=== PATIENT | female | born 1995 | race Caucasian/White ===

== ENCOUNTER 2021-06-11 11:47 | Emergency (ER) | payer SELFPAY ==
[2021-06-11] MEDS ORDERED: Sodium Chloride 0.9% 1,000 ML IV ONE (12:11)
[2021-06-11] MEDS ORDERED: Ondansetron 4 MG/2 ML SDV IVPUSH ONE (12:24)
[2021-06-11] MEDS ORDERED: Meclizine 25 MG Tab PO ONE (12:24)
[2021-06-11 12:34] LABS: BLOOD UREA NITROGEN,BUN 14 mg/dL (7.0-18.0); CARBON DIOXIDE,CO2 26.6 mmol/L (21.0-32.0); CHLORIDE,CL 104 mmol/L (98-107); GLUCOSE RANDOM 91 mg/dL (74-106); LIPASE 48 U/L (73-393); POTASSIUM,K 4.2 mmol/L (3.5-5.1); SODIUM,NA 141 mmol/L (136-145)
--- NOTE | 2021-06-11 13:04 | PCM.EKG ---
#1 Interpretation EKG Date: 06/11/21 Time: 12:59 Rhythm: Other (sinus tami) Rate (Beats/Min): 58 ST-T: Normal
--- NOTE | 2021-06-11 13:06 | EDM.PDOC ---
ED HPI GENERAL MEDICAL PROBLEM - General Chief Complaint: Gastrointestinal Problem Stated Complaint: REFERED FROM DR NORRIS Time Seen by Provider: 06/11/21 11:49 Source of Information: Reports: Patient History Limitations: Reports: No Limitations - History of Present Illness INITIAL COMMENTS - FREE TEXT/NARRATIVE: HISTORY AND PHYSICAL: History of present illness: Patient is a 25-year-old female, with a history of endometriosis and vertigo, who presents emergency room today with concern of nausea, vomiting x2 to 3 days and dizziness x5 days. Patient states that she has had this dizziness before and has been given meclizine for vertigo in the past. Patient states that she does not have it frequently but began having it again the past 5 days. Patient states now the past 2 to 3 days, she has associated vomiting and nausea and feels that she is dehydrated due to this. Patient denies any head injury or loss of consciousness. Patient states that she has not been sexually active for quite some time so does not believe to be . Patient denies any associated abdominal pain. Patient states that she has had chills off and on but has not checked a temperature at home for a possible fever. Patient states that she has had a intermittent nonspecific cough. Patient denies any other associated symptoms. Patient denies fever, chest pain, shortness of breath. Denies headache, neck stiff ness, change in vision, syncope, or near syncope. Denies abdominal pain, diarrhea, constipation, or dysuria. Has not noted any blood in urine or stool. Review of systems: As per history of present illness and below otherwise all systems reviewed and negative. Past medical history: As per history of present illness and as reviewed below otherwise noncontributory. Surgical history: As per history of present illness and as reviewed below otherwise noncontributory. Social history: See social history for further information Family history: As per history of present illness and as reviewed below otherwise noncontributory. Physical exam: General: Patient is alert, oriented, and in no acute distress. Patient sitting comfortably on exam table. Vitals stable and reviewed by me. HEENT: Atraumatic, normocephalic, pupils equal and reactive bilaterally, negative for conjunctival pallor or scleral icterus, mucous membranes moist, TMs normal bilaterally, throat clear, neck supple, nontender, trachea midline. No drooling or trismus noted. No meningeal signs. No hot potato voice noted. Lungs: Clear to auscultation, breath sounds equal bilaterally, chest nontender. Heart: S1S2, regular rate and rhythm without overt murmur Abdomen: Soft, nondistended, nontender. Negative for masses or hepatosplenomegaly. Negative for costovertebral tenderness. Pelvis: Stable nontender. Genitourinary: Deferred. Rectal: Deferred. Skin: Intact, warm, dry. No lesions or rashes noted. Extremities: Atraumatic, negative for cords or calf pain. Neurovascular unremarkable. Neuro: Awake, alert, oriented. Cranial nerves II through XII unremarkable. Cerebellum unremarkable. Motor and sensory unremarkable throughout. Exam nonfocal. Notes: Patient is a 25-year-old female, with a history of vertigo and endometriosis, who presents emergency room today secondary to vertigo symptoms with nausea and vomiting x3 to 4 days. On arrival to the ED, patient is vitally stable and well -appearing on exam. No nystagmus on exam. Exam non focal. Will obtain basic lab work and reassess patient. See Dr. Lund's dictation for specific EKG interpretation. However, sinus bradycardia without STEMI or acute changes. CBC shows a very mild leukocytosis of 11.06, otherwise mild derangements of CBC unremarkable. CMP shows a mild elevation of creatinine at 1.1, otherwise CMP unremarkable. hCG is negative. Urinalysis is clear of infection. COVID-19 is negative. Chest x-ray shows no acute cardiopulmonary process. Upon reevaluation of patient, she does not have any episodes of vomiting today in the emergency room and is able to tolerate p.o. intake. Patient expresses improvement of her symptoms with therapeutics today in the emergency room. Strict return precautions thoroughly discussed with patient. Discussed importance for follow-up with a primary care provider. Voices understanding and is agreeable to plan of care. Denies any further questions or concerns at this time. Diagnostics: EKG, CBC, CMP, UA, Serum hcg, Orthostatic vitals, CXR Therapeutics: NS, Zofran, Meclizine Prescription: Zofran Impression: Dizziness Nausea and Vomiting Plan: 1. Encourage small but frequent sips of fluid to prevent dehydration. Take medication as prescribed. 2. Follow-up with a primary care provider as discussed. Return to the ED as needed and as discussed. Definitive disposition and diagnosis as appropriate pending reevaluation and review of above. - Related Data Allergies Allergy/AdvReac Type Severity Reaction Status Date / Time metronidazole [From Flagyl] Allergy Other Verified 06/11/21 12:06 shellfish derived Allergy Other Verified 06/11/21 12:06 topiramate [From Topamax] Allergy Other Verified 06/11/21 12:06 Home Meds: Home Meds ClonazePAM [KlonoPIN] 0.5 mg PO DAILY 06/11/21 [History] DULoxetine [Cymbalta] 30 mg PO DAILY 06/11/21 [History] Ondansetron [Zofran ODT] 4 mg PO Q6H PRN #8 tab.dis 06/11/21 [Rx] Zolpidem Tartrate [Ambien] 5 mg PO ASDIRECTED 06/11/21 [History] Past Medical History - Past Health History Medical/Surgical History: Denies Medical/Surgical History [employer] History: Reports: Endometriosis Psychiatric History: Reports: Anxiety, Depression Social & Family History - Caffeine Use Caffeine Use: Reports: None - Recreational Drug Use Recreational Drug Use: Yes Recreational Drug Type: Reports: Marijuana/Hashish Recreational Drug Use Frequency: Rarely ED ROS GENERAL - Review of Systems Review Of Systems: Comprehensive ROS is negative, except as noted in HPI. ED EXAM, GENERAL - Physical Exam Exam: See Below (see dictation) Course - Vital Signs Last Recorded V/S: Last Vital Signs Temp 97.4 F 06/11/21 12:07 Pulse 60 06/11/21 12:07 Resp 16 06/11/21 12:07 BP 113/60 06/11/21 12:07 Pulse Ox 98 06/11/21 12:07 - Orders/Labs/Meds Orders: Active Orders 24 hr Category Date Time Status Orthostatic Vital Signs [RC] ASDIRECTED Care 06/11/21 12:14 Active Labs: Laboratory Tests 06/11/21 06/11/21 06/11/21 Range/Units 12:02 12:02 12:02 WBC 11.06 H (4.0-11.0) K/uL RBC 4.64 (4.30-5.90) M/uL Hgb 14.2 (12.0-16.0) g/dL Hct 42.2 (36.0-46.0) % MCV 90.9 (80.0-98.0) fL MCH 30.6 (27.0-32.0) pg MCHC 33.6 (31.0-37.0) g/dL RDW Std Deviation 43.6 (28.0-62.0) fl RDW Coeff of Antonio 13 (11.0-15.0) % Plt Count 229 (150-400) K/uL MPV 10.20 (7.40-12.00) fL Neut % (Auto) 77.6 (48.0-80.0) % Lymph % (Auto) 16.0 (16.0-40.0) % [place] % (Auto) 6.0 (0.0-15.0) % Eos % (Auto) 0.1 (0.0-7.0) % Baso % (Auto) 0.3 (0.0-1.5) % Neut # (Auto) 8.6 H (1.4-5.7) K/uL Lymph # (Auto) 1.8 (0.6-2.4) K/uL [place] # (Auto) 0.7 (0.0-0.8) K/uL Eos # (Auto) 0.0 (0.0-0.7) K/uL Baso # (Auto) 0.0 (0.0-0.1) K/uL Nucleated RBC % 0.0 /100WBC Nucleated RBCs # 0 K/uL Sodium 141 (136-145) mmol/L Potassium 4.2 (3.5-5.1) mmol/L Chloride 104 (98-107) mmol/L Carbon Dioxide 26.6 (21.0-32.0) mmol/L BUN 14 (7.0-18.0) mg/dL Creatinine 1.1 H (0.6-1.0) mg/dL Est Cr Clr Drug Dosing 58.48 mL/min Estimated GFR (MDRD) > 60.0 ml/min Glucose 91 (74-106) mg/dL Calcium 8.9 (8.5-10.1) mg/dL Total Bilirubin 0.4 (0.2-1.0) mg/dL AST 19 (15-37) IU/L ALT 29 (14-63) IU/L Alkaline Phosphatase 97 (46-116) U/L Total Protein 7.6 (6.4-8.2) g/dL Albumin 4.3 (3.4-5.0) g/dL Globulin 3.3 (2.6-4.0) g/dL Albumin/Globulin Ratio 1.3 (0.9-1.6) Lipase 48 L (73-393) U/L HCG, Qual (NEG) Urine Color YELLOW Urine Appearance CLEAR Urine pH 6.0 (5.0-8.0) Ur Specific [place] 1.015 (1.001-1.035) Urine Protein NEGATIVE (NEGATIVE) mg/dL Urine Glucose (UA) NEGATIVE (NEGATIVE) mg/dL Urine Ketones NEGATIVE (NEGATIVE) mg/dL Urine Occult Blood NEGATIVE (NEGATIVE) Urine Nitrite NEGATIVE (NEGATIVE) Urine Bilirubin NEGATIVE (NEGATIVE) Urine Urobilinogen 0.2 (<2.0) EU/dL Ur Leukocyte Esterase NEGATIVE (NEGATIVE) SARS-CoV-2 RNA (ALTA) (NEGATIVE) 06/11/21 06/11/21 Range/Units 12:02 13:09 WBC (4.0-11.0) K/uL RBC (4.30-5.90) M/uL Hgb (12.0-16.0) g/dL Hct (36.0-46.0) % MCV (80.0-98.0) fL MCH (27.0-32.0) pg MCHC (31.0-37.0) g/dL RDW Std Deviation (28.0-62.0) fl RDW Coeff of [place] (11.0-15.0) % Plt Count (150-400) K/uL MPV (7.40-12.00) fL Neut % (Auto) (48.0-80.0) % Lymph % (Auto) (16.0-40.0) % [place] % (Auto) (0.0-15.0) % Eos % (Auto) (0.0-7.0) % Baso % (Auto) (0.0-1.5) % Neut # (Auto) (1.4-5.7) K/uL Lymph # (Auto) (0.6-2.4) K/uL [place] # (Auto) (0.0-0.8) K/uL Eos # (Auto) (0.0-0.7) K/uL Baso # (Auto) (0.0-0.1) K/uL Nucleated RBC % /100WBC Nucleated RBCs # K/uL Sodium (136-145) mmol/L Potassium (3.5-5.1) mmol/L Chloride (98-107) mmol/L Carbon Dioxide (21.0-32.0) mmol/L BUN (7.0-18.0) mg/dL Creatinine (0.6-1.0) mg/dL Est Cr Clr Drug Dosing mL/min Estimated GFR (MDRD) ml/min Glucose (74-106) mg/dL Calcium (8.5-10.1) mg/dL Total Bilirubin (0.2-1.0) mg/dL AST (15-37) IU/L ALT (14-63) IU/L Alkaline Phosphatase (46-116) U/L Total Protein (6.4-8.2) g/dL Albumin (3.4-5.0) g/dL Globulin (2.6-4.0) g/dL Albumin/Globulin Ratio (0.9-1.6) Lipase (73-393) U/L HCG, Qual NEGATIVE (NEG) Urine Color Urine Appearance Urine pH (5.0-8.0) Ur Specific [place] (1.001-1.035) Urine Protein (NEGATIVE) mg/dL Urine Glucose (UA) (NEGATIVE) mg/dL Urine Ketones (NEGATIVE) mg/dL Urine Occult Blood (NEGATIVE) Urine Nitrite (NEGATIVE) Urine Bilirubin (NEGATIVE) Urine Urobilinogen (<2.0) EU/dL Ur Leukocyte Esterase (NEGATIVE) SARS-CoV-2 RNA (ALTA) NEGATIVE (NEGATIVE) Meds: Medications Discontinued Medications Generic Name Dose Route Start Last Admin Trade Name Freq PRN Reason Stop Dose Admin Sodium Chloride 1,000 mls @ 999 mls/hr 06/11/21 12:11 06/11/21 12:16 Normal Saline IV 06/11/21 13:11 999 mls/hr BOLUS ONE Administration Meclizine HCl 25 mg 06/11/21 12:24 06/11/21 12:45 Meclizine 25 Mg Tab PO 06/11/21 12:25 25 mg ONETIME ONE Administration Ondansetron HCl 4 mg 06/11/21 12:24 06/11/21 12:44 Ondansetron 4 Mg/2 Ml Sdv IVPUSH 06/11/21 12:25 4 mg ONETIME ONE Administration Departure - Departure Time of Disposition: 14:17 Disposition: Home, Self-Care 01 Clinical Impression: Dizziness Nausea and vomiting Qualifiers: Vomiting type: unspecified Vomiting Intractability: non-intractable Qualified Code(s): R11.2 - Nausea with vomiting, unspecified - Discharge Information Prescriptions: Ondansetron [Zofran ODT] 4 mg PO Q6H PRN #8 tab.dis PRN Reason: Nausea/Vomiting Instructions: Nausea and Vomiting, Adult, [id number] Referrals: PCP,None [Primary Care Provider] - Forms: ED Department Discharge Additional Instructions: The following information is given to patients seen in the emergency department who are being discharged to home. This information is to outline your options for follow-up care. We provide all patients seen in our emergency department with a follow-up referral. The need for follow-up, as well as the timing and circumstances, are variable depending upon the specifics of your emergency department visit. If you don't have a primary care physician on staff, we will provide you with a referral. We always advise you to contact your personal physician following an emergency department visit to inform them of the circumstance of the visit and for follow-up with them and/or the need for any referrals to a consulting specialist. The emergency department will also refer you to a specialist when appropriate. This referral assures that you have the opportunity for follow-up care with a specialist. All of these measure are taken in an effort to provide you with optimal care, which includes your follow-up. Under all circumstances we always encourage you to contact your private physician who remains a resource for coordinating your care. When calling for follow-up care, please make the office aware that this follow-up is from your recent emergency room visit. If for any reason you are refused follow-up, please contact the [facility] Emergency Department at and asked to speak to the emergency department charge nurse. [facility] [address] [place] [id number] [address] [id number] 1. Encourage small but frequent sips of fluid to prevent dehydration. Take medication as prescribed. 2. Follow-up with a primary care provider as discussed. Return to the ED as needed and as discussed. Sepsis Event Note (ED) - Focused Exam Vital Signs: Vital Signs Temp Pulse Resp BP Pulse Ox 06/11/21 12:07 97.4 F 60 16 113/60 98 - My Orders Last 24 Hours: My Active Orders 06/11/21 12:14 Orthostatic Vital Signs [RC] ASDIRECTED - Assessment/Plan Last 24 Hours: My Active Orders 06/11/21 12:14 Orthostatic Vital Signs [RC] ASDIRECTED
--- NOTE | 2021-06-11 13:49 | CR ---
INDICATION: Dizziness TECHNIQUE: Chest radiograph 1 view COMPARISON: None FINDINGS: Mediastinum: The mediastinum is normal in appearance. The heart silhouette is normal in size and morphology. Lung: Both lungs are unremarkable in appearance. No sign of pleural effusion seen. No pneumothorax is identified. Bone and Soft tissue: Unremarkable for age. IMPRESSION: 1. No acute cardiopulmonary disease is seen. Dictated by: Jef Flores MD @ 06/11/2021 13:49:02 (Electronically Signed)
== END 2021-06-11 14:26 | disposition home or self-care (01) ==
LOC: MW.ED 11:47
DX: R42 Dizziness and giddiness (principal); R11.2 Nausea with vomiting, unspecified; Z88.1 Allergy status to other antibiotic agents; Z91.013 Allergy to seafood; Z88.8 Allergy status to other drugs, medicaments and biological substances; Z20.822 Contact with and (suspected) exposure to COVID-19; Z79.899 Other long term (current) drug therapy
CPT/HCPCS: 71045; 80053; 81003; 83690; 84703; 85025; 87635; 93005; 96374; 99284; A9270; J2405; J7030; U0002

== ENCOUNTER 2021-06-13 13:26 | Emergency (ER) | payer SELFPAY ==
[2021-06-13] MEDS ORDERED: Meclizine 25 MG Tab PO ONE (16:33)
--- NOTE | 2021-06-13 16:37 | EDM.PDOC ---
ED HPI GENERAL MEDICAL PROBLEM - General Chief Complaint: Gastrointestinal Problem Stated Complaint: VOMITTING,DIARRHEA Time Seen by Provider: 06/13/21 16:27 Source of Information: Reports: Patient History Limitations: Reports: No Limitations - History of Present Illness INITIAL COMMENTS - FREE TEXT/NARRATIVE: Is a 25-year-old female presents today for dizziness and vomiting. Patient was seen here few days ago at [facility] for positive dehydration given IV fluids and nausea medication. She felt better but she still has some dizziness indicating some vomiting from it. Headache is made worse when she turns her head to the left. She denies any head injury vision changes or neurological complaints. Denies any fever chills shortness of breath. - Related Data Allergies Allergy/AdvReac Type Severity Reaction Status Date / Time metronidazole [From Flagyl] Allergy Other Verified 06/13/21 15:38 shellfish derived Allergy Other Verified 06/13/21 15:38 topiramate [From Topamax] Allergy Other Verified 06/13/21 15:38 Home Meds: Home Meds ClonazePAM [KlonoPIN] 0.5 mg PO DAILY 06/11/21 [History] DULoxetine [Cymbalta] 30 mg PO DAILY 06/11/21 [History] Ondansetron [Zofran ODT] 4 mg PO Q6H PRN #8 tab.dis 06/11/21 [Rx] Zolpidem Tartrate [Ambien] 5 mg PO ASDIRECTED 06/11/21 [History] Past Medical History - Past Health History Medical/Surgical History: Denies Medical/Surgical History [employer] History: Reports: Endometriosis, Other (See Below) Other [employer] History: Medical menopause at age 14, age 24 Neurological History: Reports: Migraines Psychiatric History: Reports: Anxiety, Depression Endocrine/Metabolic History: Reports: Other (See Below) Other Endocrine/Metabolic History: Hypoglycemia - Infectious Disease History Infectious Disease History: Reports: None Social & Family History - Caffeine Use Caffeine Use: Reports: Energy Drinks, Soda - Recreational Drug Use Recreational Drug Use: Yes Recreational Drug Type: Reports: Marijuana/Hashish ED ROS GENERAL - Review of Systems Review Of Systems: See Below Constitutional: Reports: No Symptoms HEENT: Reports: No Symptoms Respiratory: Reports: No Symptoms Cardiovascular: Reports: No Symptoms Endocrine: Reports: No Symptoms GI/Abdominal: Reports: No Symptoms : Reports: No Symptoms Musculoskeletal: Reports: No Symptoms Skin: Reports: No Symptoms Neurological: Reports: Dizziness Psychiatric: Reports: No Symptoms Hematologic/Lymphatic: Reports: No Symptoms Immunologic: Reports: No Symptoms ED EXAM, DIZZINESS - Physical Exam Exam: See Below Exam Limited By: No Limitations General Appearance: Alert, WD/WN, No Apparent Distress Ears: Normal External Exam, Normal Canal, Normal TMs Throat/Mouth: Normal Inspection Head Exam: Atraumatic, Normocephalic Neck: Normal Inspection, Supple, Non-Tender Respiratory/Chest: No Respiratory Distress, Lungs Clear, Normal Breath Sounds Cardiovascular: Normal Peripheral Pulses, Regular Rate, Rhythm GI/Abdominal: Normal Bowel Sounds, Soft, Non-Tender Neurological: Alert, Normal Mood/Affect, Normal Dorsiflexion, Oriented x 3 Extremities: Normal Inspection Course - Vital Signs Last Recorded V/S: Last Vital Signs Temp 96.6 F L 06/13/21 15:39 Pulse 78 06/13/21 15:39 Resp 18 06/13/21 15:39 BP 132/66 06/13/21 15:39 Pulse Ox 98 06/13/21 15:39 - Orders/Labs/Meds Labs: Laboratory Tests 06/13/21 06/13/21 06/13/21 Range/Units 16:19 16:47 16:47 WBC 10.29 (4.0-11.0) K/uL RBC 4.76 (4.30-5.90) M/uL Hgb 14.4 (12.0-16.0) g/dL Hct 43.1 (36.0-46.0) % MCV 90.5 (80.0-98.0) fL MCH 30.3 (27.0-32.0) pg MCHC 33.4 (31.0-37.0) g/dL RDW Std Deviation 42.7 (28.0-62.0) fl RDW Coeff of [place] 13 (11.0-15.0) % Plt Count 215 (150-400) K/uL MPV 9.80 (7.40-12.00) fL Neut % (Auto) 63.4 (48.0-80.0) % Lymph % (Auto) 27.7 (16.0-40.0) % [place] % (Auto) 8.6 (0.0-15.0) % Eos % (Auto) 0.0 (0.0-7.0) % Baso % (Auto) 0.3 (0.0-1.5) % Neut # (Auto) 6.5 H (1.4-5.7) K/uL Lymph # (Auto) 2.9 H (0.6-2.4) K/uL [place] # (Auto) 0.9 H (0.0-0.8) K/uL Eos # (Auto) 0.0 (0.0-0.7) K/uL Baso # (Auto) 0.0 (0.0-0.1) K/uL Nucleated RBC % 0.0 /100WBC Nucleated RBCs # 0 K/uL Sodium 142 (136-145) mmol/L Potassium 3.8 (3.5-5.1) mmol/L Chloride 105 (98-107) mmol/L Carbon Dioxide 28.7 (21.0-32.0) mmol/L BUN 10 (7.0-18.0) mg/dL Creatinine 1.3 H (0.6-1.0) mg/dL Est Cr Clr Drug Dosing 49.48 mL/min Estimated GFR (MDRD) 49.5 ml/min Glucose 83 (74-106) mg/dL POC Glucose 82 (70-99) mg/dL Calcium 9.0 (8.5-10.1) mg/dL Total Bilirubin 0.4 (0.2-1.0) mg/dL AST 17 (15-37) IU/L ALT 23 (14-63) IU/L Alkaline Phosphatase 98 (46-116) U/L Total Protein 7.7 (6.4-8.2) g/dL Albumin 4.4 (3.4-5.0) g/dL Globulin 3.3 (2.6-4.0) g/dL Albumin/Globulin Ratio 1.3 (0.9-1.6) Meds: Medications Discontinued Medications Generic Name Dose Route Start Last Admin Trade Name Freq PRN Reason Stop Dose Admin Meclizine HCl 25 mg 06/13/21 16:33 06/13/21 16:52 Meclizine 25 Mg Tab PO 06/13/21 16:34 25 mg ONETIME ONE Administration - Re-Assessments/Exams Free Text/Narrative Re-Assessment/Exam: 06/13/21 17:34 His labs reviewed the baseline from 2 days ago. Patient dizziness improved meclizine patient stop Zofran and change to meclizine. Patient be discharged home. Departure - Departure Time of Disposition: 17:35 Disposition: Home, Self-Care 01 Condition: Good Clinical Impression: Dizziness - Discharge Information *PRESCRIPTION DRUG MONITORING PROGRAM REVIEWED*: Not Applicable *COPY OF PRESCRIPTION DRUG MONITORING REPORT IN PATIENT DEB: Not Applicable Instructions: Dizziness, [id number] Referrals: PCP,None [Primary Care Provider] - Forms: ED Department Discharge Additional Instructions: The following information is given to patients seen in the emergency department who are being discharged to home. This information is to outline your options for follow-up care. We provide all patients seen in our emergency department with a follow-up referral. The need for follow-up, as well as the timing and circumstances, are variable depending upon the specifics of your emergency department visit. If you don't have a primary care physician on staff, we will provide you with a referral. We always advise you to contact your personal physician following an emergency department visit to inform them of the circumstance of the visit and for follow-up with them and/or the need for any referrals to a consulting specialist. The emergency department will also refer you to a specialist when appropriate. This referral assures that you have the opportunity for follow-up care with a specialist. All of these measure are taken in an effort to provide you with optimal care, which includes your follow-up. Under all circumstances we always encourage you to contact your private physician who remains a resource for coordinating your care. When calling for follow-up care, please make the office aware that this follow-up is from your recent emergency room visit. If for any reason you are refused follow-up, please contact the [facility] Emergency Department at and asked to speak to the emergency department charge nurse. Please follow up with your primary care physician. If you do not have a primary care physician, see below: [facility] [address] [place] [id number] [facility] [address] [place] [address] He was seen today for dizziness. We gave him some meclizine which helps out with dizziness and improve his symptoms. Your dizziness may be related to vertigo. We will send you home with the meclizine please stop taking Zofran. Please try to follow the primary care physician. If any other concerning signs or symptoms please return to the ED. Sepsis Event Note (ED) - Focused Exam Vital Signs: Vital Signs Temp Pulse Resp BP Pulse Ox 06/13/21 15:39 96.6 F L 78 18 132/66 98 - Assessment/Plan Plan: Patient is a 25-year-old female who presents today for dizziness and nausea vomiting. She was seen here few days ago given Zofran nausea has improved but she occasionally is vomiting when she gets dizzy. Patient has some nystagmus and dizziness is worse with looking to the left likely peripheral will give some meclizine labs and reassess.
[2021-06-13 17:21] LABS: CARBON DIOXIDE,CO2 28.7 mmol/L (21.0-32.0); POTASSIUM,K 3.8 mmol/L (3.5-5.1)
== END 2021-06-13 17:41 | disposition home or self-care (01) ==
LOC: MW.ED 13:26
DX: R42 Dizziness and giddiness (principal); Z91.013 Allergy to seafood; Z88.5 Allergy status to narcotic agent; Z88.1 Allergy status to other antibiotic agents
CPT/HCPCS: 36415; 80053; 82947; 85025; 99284; A9270

== ENCOUNTER 2022-12-05 19:16 | Inpatient (IN) | payer BC ==
[2022-12-05 21:31] LABS: CARBON DIOXIDE,CO2 21.2 mmol/L (21.0-32.0); POTASSIUM,K 3.6 mmol/L (3.5-5.1)
[2022-12-05] MEDS ORDERED: Terbutaline 1 MG/ML SDV SUBCUT PRN (23:09)
[2022-12-05] MEDS ORDERED: Oxytocin/0.9 % Sodium Chloride 30 UNIT/500 ML BAG IV SCH (23:15)
[2022-12-05] MEDS ORDERED: Sodium Chloride 0.9% 20 ML SDV IV PRN (23:26)
[2022-12-05] MEDS ORDERED: Sodium Chloride 0.9% 2.5 ML Syringe FLUSH PRN (23:26)
[2022-12-05] MEDS ORDERED: Labetalol 100 MG/20 ML MDV IVPUSH PRN (23:26)
[2022-12-05] MEDS ORDERED: Magnesium Sulfate/Water 4 GM in Premix Bag 1 BAG IV ONE (23:26)
[2022-12-05] MEDS ORDERED: Sodium Chloride 0.9% 10 ML Syringe FLUSH PRN (23:26)
[2022-12-05] MEDS ORDERED: Calcium Gluconate 10% 1 GM/10 ML SDV IV PRN (23:26)
[2022-12-06] MEDS: Ampicillin 2 GM in Sodium Chloride 0.9% 100 ML IV SCH ×4 (02:08→20:35)
[2022-12-06] MEDS: Lactated Ringers 1,000 ML IV SCH (02:20)
[2022-12-06] MEDS: Misoprostol 25 MCG (1/4 of 100 MCG) Tab PO SCH ×6 (02:22→12:27)
[2022-12-06] MEDS: Magnesium Sulfate/Water 20 GM/500 ML BAG IV SCH (02:29)
[2022-12-06] MEDS ORDERED: Misoprostol 25 MCG (1/4 of 100 MCG) Tab ONE ×2 (04:24→06:11)
[2022-12-06] MEDS: Sodium Chloride 0.9% 1,000 ML IV SCH (12:26)
[2022-12-06] MEDS ORDERED: Acetaminophen 500 MG Tab PO ONE (14:38)
[2022-12-06 19:19] LABS: CARBON DIOXIDE,CO2 22.9 mmol/L (21.0-32.0); POTASSIUM,K 4.2 mmol/L (3.5-5.1)
[2022-12-06] MEDS: Calcium Carbonate 500 MG Tab.Chew PO PRN (23:09)
[2022-12-07] MEDS ORDERED: Ropivacaine/PF 400 MG/200 ML PCA ONE (00:05)
[2022-12-07] MEDS ORDERED: Phenylephrine HCl In 0.9% NaCl 1 MG/10 ML Vial IVPUSH PRN (01:19)
[2022-12-07] MEDS ORDERED: ePHEDrine 50 MG/ML SDV IVPUSH PRN (01:19)
[2022-12-07] MEDS ORDERED: Ropivacaine HCl/PF 400 MG in Premix Bag 1 BAG EPIDUR SCH (01:30)
[2022-12-07 01:59] LABS: CARBON DIOXIDE,CO2 19.3 mmol/L (21.0-32.0); POTASSIUM,K 3.7 mmol/L (3.5-5.1)
[2022-12-07] MEDS: Ampicillin 2 GM in Sodium Chloride 0.9% 100 ML IV SCH ×2 (02:20→08:01)
[2022-12-07] MEDS: Magnesium Sulfate/Water 20 GM/500 ML BAG IV SCH (05:53)
[2022-12-07] MEDS: Calcium Carbonate 500 MG Tab.Chew PO PRN ×2 (05:53→21:59)
[2022-12-07 07:26] LABS: CARBON DIOXIDE,CO2 18.5 mmol/L (21.0-32.0); POTASSIUM,K 3.6 mmol/L (3.5-5.1)
[2022-12-07] MEDS ORDERED: Ondansetron 4 MG/2 ML SDV IVPUSH PRN (13:29)
[2022-12-07 13:44] LABS: CARBON DIOXIDE,CO2 18.9 mmol/L (21.0-32.0); POTASSIUM,K 4.1 mmol/L (3.5-5.1)
[2022-12-07] MEDS ORDERED: Witch Hazel Medicated Pads 40/Jar TOP PRN (17:06)
[2022-12-07] MEDS ORDERED: Ibuprofen 800 MG Tab PO PRN (17:06)
[2022-12-07] MEDS ORDERED: Docusate Sodium 100 MG Cap PO PRN (17:06)
[2022-12-07] MEDS ORDERED: Lanolin 100% Cream 7 GM Tube TOP PRN (17:06)
[2022-12-07] MEDS ORDERED: Benzocaine/Menthol 20%-0.5% Spray 78 GM Cannister TOP PRN (17:06)
[2022-12-07] MEDS ORDERED: Ibuprofen 400 MG Tab PO PRN (17:06)
[2022-12-07] MEDS ORDERED: Bisacodyl 10 MG Supp RECTAL PRN (17:06)
[2022-12-07] MEDS ORDERED: Acetaminophen 500 MG Tab PO PRN (17:06)
[2022-12-07] MEDS ORDERED: oxyCODONE 5 MG Tab PO PRN (17:06)
[2022-12-07 19:39] LABS: CARBON DIOXIDE,CO2 20.7 mmol/L (21.0-32.0); POTASSIUM,K 4.1 mmol/L (3.5-5.1)
[2022-12-07] MEDS: Lactated Ringers 1,000 ML IV SCH (23:36)
[2022-12-07] MEDS: Sodium Chloride 0.9% 1,000 ML IV SCH (23:41)
[2022-12-08] MEDS: Acetaminophen 500 MG Tab PO PRN ×2 (00:03→08:25)
[2022-12-08 01:45] LABS: CARBON DIOXIDE,CO2 20.5 mmol/L (21.0-32.0); POTASSIUM,K 3.8 mmol/L (3.5-5.1)
[2022-12-08 08:13] LABS: CARBON DIOXIDE,CO2 22.9 mmol/L (21.0-32.0); POTASSIUM,K 3.9 mmol/L (3.5-5.1)
[2022-12-08 13:36] LABS: CARBON DIOXIDE,CO2 21.8 mmol/L (21.0-32.0); POTASSIUM,K 3.8 mmol/L (3.5-5.1)
[2022-12-08 17:44] LABS: CARBON DIOXIDE,CO2 24.3 mmol/L (21.0-32.0); POTASSIUM,K 4.3 mmol/L (3.5-5.1)
[2022-12-08 19:56] LABS: CARBON DIOXIDE,CO2 23.9 mmol/L (21.0-32.0)
[2022-12-09 02:03] LABS: CARBON DIOXIDE,CO2 23.8 mmol/L (21.0-32.0); POTASSIUM,K 3.5 mmol/L (3.5-5.1)
[2022-12-09] MEDS: Acetaminophen 500 MG Tab PO PRN ×3 (05:37→18:46)
[2022-12-09] MEDS: Calcium Carbonate 500 MG Tab.Chew PO PRN (05:40)
[2022-12-10 05:59] LABS: CARBON DIOXIDE,CO2 27.1 mmol/L (21.0-32.0); POTASSIUM,K 3.8 mmol/L (3.5-5.1)
== END 2022-12-10 11:23 | disposition home or self-care (01) | DRG 560 ==
LOC: MW.OBCHECK 19:16 → MW.OB 19:16 → MW.OBCHECK 12-06 00:28 → MW.OB 12-06 00:29 → OBSVTOIN 12-07 16:35 → MW.OB 12-07 19:33
PROVIDERS: ADMIT Obstetrics & Gynecology; ATTEND Obstetrics & Gynecology
PROC: 10E0XZZ Delivery of Products of Conception, External Approach (ICD-10-PCS; principal; 2022-12-07)
PROC: 3E0P7VZ Introduction of Hormone into Female Reproductive, Via Natural or Artificial Opening (ICD-10-PCS; 2022-12-07)
PROC: 3E033VJ Introduction of Other Hormone into Peripheral Vein, Percutaneous Approach (ICD-10-PCS; 2022-12-07)
PROC: 3E0R3BZ Introduction of Anesthetic Agent into Spinal Canal, Percutaneous Approach (ICD-10-PCS; 2022-12-07)
PROC: 00HU33Z Insertion of Infusion Device into Spinal Canal, Percutaneous Approach (ICD-10-PCS; 2022-12-07)
DX: O14.14 Severe pre-eclampsia complicating childbirth (principal); Z37.0 Single live birth; O99.344 Other mental disorders complicating childbirth; F41.9 Anxiety disorder, unspecified; F32.A Depression, unspecified; O66.0 Obstructed labor due to shoulder dystocia; Z20.822 Contact with and (suspected) exposure to COVID-19; Z3A.36 36 weeks gestation of pregnancy; Z91.013 Allergy to seafood; O77.0 Labor and delivery complicated by meconium in amniotic fluid
CPT/HCPCS: 36415; 59025; 59200; 59409; 76815; 76815-26; 80053; 82565; 82570; 82803; 82947; 83615; 83735; 84156; 85025; 85027; 86850; 86900; 86901; A9270-GY; J0290; J2405; J2590; J3475; J7030; J7050; J7120; U0002